=== PATIENT | male | born 1970 | race Caucasian/White ===

== ENCOUNTER → 2021-03-19 | Outpatient (CLI) | payer OTHER ==
--- NOTE | 2021-03-19 13:46 | REP ---
INDICATION: PAIN IN LEFT KNEE. COMPARISON: Comparison MRI study of the left knee is from September 02, 2007.. TECHNIQUE: Axial, coronal, and sagittal imaging planes are you utilized. T1, proton density, and T2 weighted scans are included with without fat saturation in the usual fashion. FINDINGS: Some thickening and heterogeneous signal intensity is again seen in the distal quadriceps tendon at its patellar insertion and in the proximal patellar tendon. There is osteoarthritic spurring of the superior inferior pole of patella as well. There is moderate to severe diffuse chondromalacia patella. Mild chondromalacia is seen in the femoral trochlear articular cartilage and patellofemoral osteoarthritic spurring is seen. There is mild osteophytic lipping the medial and the lateral tibial plateau. No medial or lateral meniscal tear is appreciated. Anterior and posterior cruciate ligaments appear intact. There is no evidence of medial or lateral collateral ligament disruption. No Cavazos's cyst is seen. There is a small joint effusion. There is a crescent-shaped osteocartilaginous loose body in the posteromedial joint line surrounded by joint fluid. This measures 9 mm in greatest diameter. Prepatellar soft tissue edema is seen anterior to the patella and anterior to the patellar tendon. IMPRESSION: Small joint effusion. Osteocartilaginous loose body posteromedially. Patellofemoral and early tibiofemoral osteoarthritis. Advanced chondromalacia patella. <Electronically signed by Pavel Jeffery > 03/19/21 [id number]
== END ==
LOC: M RAD 10:57
PROVIDERS: ATTEND Orthopaedic Surgery
DX: M25.462 Effusion, left knee (principal); M23.42 Loose body in knee, left knee; M22.2X2 Patellofemoral disorders, left knee; M17.12 Unilateral primary osteoarthritis, left knee

== ENCOUNTER → 2021-06-19 | Outpatient (CLI) | payer OTHER ==
--- NOTE | 2021-06-19 14:13 | REP ---
INDICATION: LT KNEE OA W/ PAIN ? MENISCUS TEAR. COMPARISON: 03/19/2021. TECHNIQUE: Multiple sequences obtained in the axial, coronal and sagittal planes. FINDINGS: Menisci: There is a horizontal oblique cleavage tear of the anterior and posterior horns of the medial meniscus. Lateral meniscus is intact. Cruciate ligaments: Intact. Collateral ligaments: Intact. Extensor mechanism/patellar retinacula: Intact. There is thickening and mild increased signal of the distal quadriceps tendon compatible with tendinitis. Cartilage: Moderately severe diffuse chondromalacia of the patella is stable. Moderate chondromalacia in femoral notch is again noted and there is mild to moderate diffuse chondromalacia of the medial femoral condyle and tibial plateau. Bone marrow: Normal signal, no edema or occult fracture. Joint fluid: There is a moderate joint effusion unchanged. Popliteal region: No cyst. 7 mm posterior joint body is unchanged. IMPRESSION: New horizontal oblique cleavage tear of the anterior and posterior horns of the medial meniscus. There are findings of distal quadriceps tendinitis. Stable diffuse chondromalacia, most significantly of the patella. Stable moderate joint effusion and posterior joint body. <Electronically signed by Reginald Ibarra > 06/19/21 [id number]
== END ==
LOC: M PLAIMG 12:48
PROVIDERS: ATTEND Orthopaedic Surgery
DX: M17.12 Unilateral primary osteoarthritis, left knee (principal); S83.242A Other tear of medial meniscus, current injury, left knee, initial encounter; X58.XXXA Exposure to other specified factors, initial encounter; Y92.9 Unspecified place or not applicable; M22.42 Chondromalacia patellae, left knee; M25.462 Effusion, left knee